=== PATIENT | male | born 1945 | race Hispanic/Latino ===

== ENCOUNTER 2021-02-05 16:01 | Emergency (ER) | payer BC ==
--- NOTE | 2021-02-05 19:09 | Emergency Department Report ---
ED Rash HPI - HPI Chief Complaint: Skin Rash Stated Complaint: PUNCTURE WOUNDS ON ARM Time Seen by Provider: 02/05/21 18:52 Duration: Today Location: Upper Extremities (left forearm ) Rash Symptoms: No Itching, No Facial Swelling, No Tongue/Oral Swelling, No Breathing Difficulties, No Choking Sensation, No Wheezing/Dyspnea, No Peeling, No Blistering, No Fever, No Lightheaded, No Malaise, No Myalgias Severity: mild Other History: Patient presents to the ER today with complaints of rash to the dorsal aspect of his left forearm. He states that he noticed it when he woke up yesterday. He states that he does not recall anything biting him but he does look like to puncture wounds. He denies any other injury to his arm. He states that there is some swelling and redness around the area but it has since improved. He denies any pain or itching currently. He states that he came to just have it checked out. ED Review of Systems ROS: Stated complaint: PUNCTURE WOUNDS ON ARM Other details as noted in HPI Comment: All other systems reviewed and negative Constitutional: denies: chills, fever, weakness Eyes: denies: eye pain, eye discharge, vision change ENT: denies: ear pain, throat pain, dental pain, hearing loss, congestion Respiratory: denies: cough, shortness of breath, SOB with exertion, SOB at rest, wheezing Gastrointestinal: denies: abdominal pain, nausea, diarrhea, constipation, hematemesis, hematochezia Genitourinary: denies: urgency, dysuria, frequency, hematuria, discharge, testicular pain, testicular mass Musculoskeletal: denies: back pain, joint swelling, arthralgia Skin: rash. denies: change in color, change in hair/nails, pruritus Neurological: denies: headache, weakness, numbness, paresthesias, confusion, abnormal gait, vertigo Psychiatric: denies: anxiety, depression, auditory hallucinations, visual hallucinations, homicidal thoughts, suicidal thoughts Hematological/Lymphatic: as per HPI. denies: easy bruising, swollen glands Rash Exam - Exam General: Vital signs noted. No distress. Alert and acting appropriately. Lungs: No Good Air Exchange, No Wheezes, No Ronchi, No Stridor, No Cough, No Labored Respirations, No Retractions, No Use of Accessory Muscles, No Other Abnormal Lung Sounds Skin: Yes Excoriations (Three very small annular/excoriated areas with some crusting noted to the dorsal distal aspect of the left forearm. There is no apparent signs of infection. No induration no fluctuance no erythema. No tenderness to palpation.), No Urticarial Rash, No Maculopapular Rash, No Morbilliform rash, No Bulla(e), No Weeping, No Tenderness, No Erythema, No Edema, No Encrustations, No Other Other: Positive: Abdomen Normal, Neurologic Normal, Musculoskeletal Normal ED Course Vital Signs 02/05/21 17:06 Temperature 98.0 F Pulse Rate 69 Respiratory 18 Rate Blood Pressure 135/69 O2 Sat by Pulse 99 Oximetry ED Medical Decision Making - Medical Decision Making Physical exam shows 3 very small excoriated/abraised areas to the dorsal aspect of the left forearm. No apparent signs of secondary infection. No skin necrosis. Patient was concerned that this could be related to a poisonous insec t bite. Reassured patient that exact cause at this time unclear, but there is no concerning findings on exam today requiring any testing, or or treatment. Wound care discussed with patient. Patient expressed understanding of all instruction. Patient stable at time of discharge. Critical care attestation.: If time is entered above; I have spent that time in minutes in the direct care of this critically ill patient, excluding procedure time. ED Disposition Clinical Impression: Skin excoriation Disposition: 01 HOME / SELF CARE / HOMELESS Is pt being admited?: No Condition: Stable Instructions: Abrasion, [id number] Additional Instructions: Keep the area clean with soap and water. Do not use peroxide or alcohol. You can apply thin layer of Neosporin after each cleaning and he can do that the next 5 days. Follow-up closely with your PCP. Return to the ER if your symptoms worsens in any way. Referrals: PRIMARY CARE, [Referring] - 3-5 Days Time of Disposition: 19:23
[2021-02-06 07:10] VITALS: BP 120/86
== END 2021-02-06 07:08 | disposition home or self-care (01) ==
LOC: ED 16:01
DX: F42.4 Excoriation (skin-picking) disorder (principal); R21 Rash and other nonspecific skin eruption
CPT/HCPCS: 99282

== ENCOUNTER 2021-10-28 12:43 | Emergency (ER) | payer BC, OTHER ==
--- NOTE | 2021-10-28 14:08 | Vascular Lab Report ---
DUPLEX DOPPLER LOWER EXTREMITY VEINS, RIGHT INDICATION / CLINICAL INFORMATION: right lower leg swelling. TECHNIQUE: Duplex doppler imaging was performed through the veins of the right lower extremity using venous comp ression and other maneuvers. COMPARISON: None available. FINDINGS: RIGHT COMMON FEMORAL VEIN: Negative. RIGHT FEMORAL VEIN: Negative. RIGHT POPLITEAL VEIN: Negative. RIGHT CALF VEINS: Negative. ADDITIONAL FINDINGS: Subcutaneous edema in the calf. IMPRESSION: 1. No sonographic evidence for DVT in the right lower extremity. Signer Name: Montez Scanlon MD Signed: 10/28/2021 2:03 PM Workstation Name: [id number]
--- NOTE | 2021-10-28 20:26 | Emergency Department Report ---
ED Extremity Problem HPI - General Chief complaint: Extremity Injury, Lower Stated complaint: RIGHT LEG PAIN Time Seen by Provider: 10/28/21 19:45 Source: patient Mode of arrival: Ambulatory Limitations: No Limitations - History of Present Illness Initial comments: 76-year-old white male with no past medical history resents to the emergency department for evaluation of 1 week history of worsening right lower leg pain and swelling. He states that 1-1/2 weeks ago a piece of plywood hit him on his right leg and area has had increased pain and swelling since then. He states that pain is worse is 10 out of 10. He denies fever, chest pain, shortness of breath, and hemoptysis. MD Complaint: extremity pain, extremity swelling -: Gradual, week(s) (1.5) Location: right, lower extremity History of Same: No -: No myalgia, No arthralgia, No fever, No associated dyspnea, No associated chest pain Radiation: none Severity scale (0 -10): 10 Quality: aching Consistency: constant Worsens with: weight bearing Associated Symptoms: denies: chest pain, shortness of breath, fever, myalgias, arthralgias - Related Data Previous Rx's Medication Instructions Recorded Last Taken Type Acetaminophen/Codeine [Tylenol 1 tab PO Q6H PRN #12 tab 10/28/21 Unknown Rx /Codeine # 3 tab] Clindamycin [Clindamycin CAP] 300 mg PO Q8H 10 Days #30 cap 10/28/21 Unknown Rx Allergies Allergy/AdvReac Type Severity Reaction Status Date / Time penicillin G Allergy Unknown Unknown Verified 02/05/21 17:08 [From Bicillin C-R] penicillin G procaine Allergy Unknown Unknown Verified 02/05/21 17:08 [From Bicillin C-R] Penicillins Allergy Unknown Unknown Verified 02/05/21 17:08 ED Review of Systems ROS: Stated complaint: RIGHT LEG PAIN Other details as noted in HPI Comment: All other systems reviewed and negative Constitutional: denies: see HPI, fever Respiratory: denies: shortness of breath Cardiovascular: denies: chest pain, palpitations Gastrointestinal: denies: abdominal pain, nausea, vomiting Musculoskeletal: denies: back pain Neurological: denies: headache, weakness ED Past Medical Hx - Past Medical History Previous Medical History?: No - Surgical History Past Surgical History?: No - Medications Home Medications: Home Medications Medication Instructions Recorded Confirmed Last Taken Type Acetaminophen/Codeine [Tylenol 1 tab PO Q6H PRN #12 tab 10/28/21 Unknown Rx /Codeine # 3 tab] Clindamycin [Clindamycin CAP] 300 mg PO Q8H 10 Days #30 cap 10/28/21 Unknown Rx ED Physical Exam - General Limitations: No Limitations General appearance: alert, in no apparent distress - Head Head exam: Present: atraumatic, normocephalic - Eye Eye exam: Present: normal appearance. Absent: conjunctival injection - Neck Neck exam: Present: normal inspection, full ROM. Absent: tenderness, lymphadenopathy - Respiratory Respiratory exam: Present: normal lung sounds bilaterally. Absent: respiratory distress, wheezes, rales, chest wall tenderness - Cardiovascular Cardiovascular Exam: Present: regular rate, normal heart sounds - GI/Abdominal GI/Abdominal exam: Present: soft, normal bowel sounds. Absent: distended, tenderness, guarding - Expanded Lower Extremity Exam Right Upper Leg exam: Present: normal inspection Knee exam: Present: normal inspection Lower Leg exam: Present: tenderness, swelling, erythema. Absent: abrasion, laceration, ecchymosis Ankle exam: Present: normal inspection, swelling. Absent: tenderness Foot/Toe exam: Present: swelling Neuro vascular tendon exam: Present: no vascular compromise. Absent: pulse deficit, abnormal cap refill, extremity cold to touch, pallor Gait: Positive: observed and limited by pain 1 - Erythema, edema, and tenderness to touch. No drainage noted. Entire area warm to touch. - Back Exam Back exam: Present: normal inspection - Neurological Exam Neurological exam: Present: alert, oriented X3 - Psychiatric Psychiatric exam: Present: normal affect, normal mood - Skin Skin exam: Present: warm, dry, intact, normal color ED Course Vital Signs 10/28/21 13:16 Temperature 98.4 F Pulse Rate 79 Respiratory 18 Rate Blood Pressure 124/74 [Left] O2 Sat by Pulse 99 Oximetry ED Medical Decision Making - Radiology Data Radiology results: report reviewed, image reviewed Right lower extremity venous Doppler: FINDINGS: RIGHT COMMON FEMORAL VEIN: Negative. RIGHT FEMORAL VEIN: Negative. RIGHT POPLITEAL VEIN: Negative. RIGHT CALF VEINS: Negative. ADDITIONAL FINDINGS: Subcutaneous edema in the calf. IMPRESSION: 1. No sonographic evidence for DVT in the right lower extremity. - Medical Decision Making 76-year-old white male with no past medical history resents to the emergency department for evaluation of 1 week history of worsening right lower leg pain and swelling. He states that 1-1/2 weeks ago a piece of plywood hit him on his right leg and area has had increased pain and swelling since then. He states that pain is worse is 10 out of 10. He denies fever, chest pain, shortness of breath, and hemoptysis. Physical exam consistent with right lower leg cellulitis. Ultrasound negative for DVT. Patient be discharged home with 10-day course of clindamycin along with Tylenol 3 to use as needed for pain. He is advised to follow-up with his primary care provider if no improvement or worsening symptoms. He is advised to return to the emergency department as needed. He verbalizes understanding of and agreement with plan of care. Critical care attestation.: If time is entered above; I have spent that time in minutes in the direct care of this critically ill patient, excluding procedure time. ED Disposition Clinical Impression: Cellulitis of right lower leg Disposition: 01 HOME / SELF CARE / HOMELESS Is pt being admited?: No Does the pt Need Aspirin: No Condition: Stable Instructions: Cellulitis, Adult, [id number] Additional Instructions: Take medications as prescribed. Follow-up with your primary care provider if no improvement or worsening symptoms. Return to the emergency department as needed. Prescriptions: Clindamycin [Clindamycin CAP] 300 mg PO Q8H 10 Days #30 cap Acetaminophen/Codeine [Tylenol /Codeine # 3 tab] 1 tab PO Q6H PRN #12 tab PRN Reason: Pain, Moderate (4-6) Referrals: MICAELA ROGERS MD [Staff Physician] - 3-5 Days Time of Disposition: 20:34
[2021-10-28] MEDS ORDERED: TETANUS,DIPH,PERTUSS(ACELL) VACCINE 0.5 ML SYRINGE IM ONE (20:29)
[2021-10-28] MEDS ORDERED: ACETAMINOPHEN W/CODEINE 300-30 MG TAB PO ONE (20:29)
[2021-10-28] MEDS ORDERED: CLINDAMYCIN 150 MG CAP PO ONE (20:30)
[2021-10-28 22:01] VITALS: BP 133/79
== END 2021-10-28 21:51 | disposition home or self-care (01) ==
LOC: ED 12:43
DX: L03.115 Cellulitis of right lower limb (principal)
CPT/HCPCS: 90471; 90715; 99283